=== PATIENT | female | born 1955 | race Caucasian/White ===

== ENCOUNTER 2016-11-25 07:32 | Day surgery (SDC) | payer BC ==
--- NOTE | ~2016-11-25 | EGD ---
EGD REPORT [facility] [address] [place] [address] NAME: AYESHA MCCORMICK : [birth year] STATUS : REG [facility] [place] PAT#: [id number] AGE: 61 ADM/REG DATE : 11/25/16 MR#: [id number] REPORT SERV DATE: 11/25/16 DICTATED BY: DANE CAMEJO DATE: 11/25/16 REPORT STATUS : Draft TRANSCRIBED BY: [employer] DATE: 11/25/16 Endoscopy Center Patient Name: Ayesha Mccormick Date of : 1955 Attending MD: DANE CAMEJO MD Procedure Date No Time: 11/25/2016 Procedure: Colonoscopy Indications: High risk colon cancer surveillance: Personal history of colonic polyps, FH of Colon Cancer - 1st degree relative Referring MD: Misty Albarran Medicines: as per anesthesia Complications: No immediate complications. Procedure: Pre-Anesthesia Assessment: - ASA Grade Assessment: II - A patient with mild systemic disease. After I obtained informed consent, the scope was passed under direct vision. Throughout the procedure, the patient's blood pressure, pulse, and oxygen saturations were monitored continuously. The PCF [id number] was introduced through the anus and advanced to the cecum, identified by appendiceal orifice and ileocecal valve. The colonoscopy was somewhat difficult due to restricted mobility of the colon and significant looping. The patient tolerated the procedure. The quality of the bowel preparation was adequate to identify polyps. Findings: The perianal and digital rectal examinations were normal. Internal hemorrhoids were found during endoscopy and were mild. Impression: - Internal hemorrhoids. Recommendation: - Repeat colonoscopy in 5 years for surveillance. Procedure Code(s): --- Professional --- 20795, Colonoscopy, flexible, proximal to splenic flexure; diagnostic, with or without collection of specimen(s) by brushing or washing, with or without colon decompression (separate procedure) Diagnosis Code(s): --- Professional --- K64.8, Other hemorrhoids Z86.010, Personal history of colonic polyps Z80.0, Family history of malignant neoplasm of digestive organs EGD REPORT [place] [address] [id number] NAME: AYESHA MCCORMICK : [birth year] STATUS : REG [facility]#: [id number] AGE: 61 ADM/REG DATE : 11/25/16 MR#: [id number] REPORT SERV DATE: 11/25/16 DICTATED BY: DANE CAMEJO DATE: 11/25/16 REPORT STATUS : Draft TRANSCRIBED BY: [employer] DATE: 11/25/16 CPT copyright 2013 [employer]. All rights reserved. The codes documented in this report are preliminary and upon hogshead cooper review may be revised to meet current compliance requirements. DANE CAMEJO MD 11/25/2016 10:48 AM This report has been signed electronically. Number of Addenda: 0 Note Initiated On: 11/25/2016 9:52 AM Scope Withdrawal Time 0 hours 9 minutes 19 seconds [address] [id number]
[~2016-11-25 07:32] MED LIST: ADRENAL COMPLEX PO; ASAB PO; B COMPLETE PO; KRILLOIL PO; LUTEIN10 MG PO; MULTI-VIT HP PO; OS500+D PO; PRESERVISION A1 EAC1 PO; SYN.05 PO; VITC500 PO; ZYRTEC ALLGY10 MG PO
== END 2016-11-25 23:59 | disposition home health service (06) ==
LOC: DMU 07:32
PROVIDERS: Internal Medicine Gastroenterology
PROC: 0DJD8ZZ Inspection of Lower Intestinal Tract, Via Natural or Artificial Opening Endoscopic (ICD-10-PCS; principal; 2016-11-25 09:00)
DX: Z12.11 Encounter for screening for malignant neoplasm of colon (principal); K64.8 Other hemorrhoids; E03.9 Hypothyroidism, unspecified; K21.9 Gastro-esophageal reflux disease without esophagitis; Z86.010 Personal history of colon polyps; Z80.0 Family history of malignant neoplasm of digestive organs; Z88.8 Allergy status to other drugs, medicaments and biological substances; Z98.890 Other specified postprocedural states